=== PATIENT | female | born 1935 | race Caucasian/White ===

== ENCOUNTER 2023-09-18 06:39 | Day surgery (SDC) | payer MEDICARE, BC, SELFPAY ==
--- NOTE | 2023-09-12 15:35 | PTCARENOTE ---
Patients 08/27 glucose- 59. Dr. Soto notified- no additional interventions required.
[2023-09-13 09:15] VITALS: BMI 25.3
[2023-09-18] MEDS: CYSVIEW KIT 100 MG INTRAVES (12:18)
[2023-09-18 12:32] VITALS: BP 190/75; BMI 25.3
[2023-09-18] MEDS: NORMOSOL-R 1000 IV (12:49)
[2023-09-18 14:00] VITALS: BP 131/50
[2023-09-18 14:15] VITALS: BP 140/55
[2023-09-18] MEDS: Pyridium 200 MG PO (14:19)
[2023-09-18] MEDS: DETROL LA 2 MG PO (14:19)
[2023-09-18 14:30] VITALS: BP 170/74
[2023-09-18 14:45] VITALS: BP 170/66
== END 2023-09-18 15:18 ==
LOC: SDS 06:39
PROVIDERS: ATTENDING PHYSICIAN Surgery
DX: N30.20 Other chronic cystitis without hematuria (principal); N32.3 Diverticulum of bladder
CPT/HCPCS: 52204; C9738; 88305; A9589